=== PATIENT | male | born 1975 | race Caucasian/White ===

== ENCOUNTER 2019-05-14 14:35 | Emergency (ER) | payer OTHER ==
[~2019-05-14] VITALS: Ht 167.6 cm; Wt 66.2 kg
[2019-05-14] MEDS ORDERED: OMEPRAZOLE20 MG PO (17:46)
== END 2019-05-14 17:54 | disposition home or self-care (01) ==
LOC: ED 14:35
DX: R10.12 Left upper quadrant pain (principal)
CPT/HCPCS: 80053; 81001; 83690; 85025; 99284